=== PATIENT | male | born 1955 | race Caucasian/White ===

== ENCOUNTER 2024-08-17 10:34 | Emergency (ER) | payer MEDICARE ==
[~2024-08-17] VITALS: Ht 165.1 cm; Wt 75.0 kg
[2024-08-17 10:44] VITALS: BP 185/84; PULSE 100; TEMP 97.9; O2SAT 97
[2024-08-17] MEDS ORDERED: ONDA-243 PO (13:03)
[2024-08-17] MEDS ORDERED: SODI354S PO (13:03)
[2024-08-17] MEDS ORDERED: DICY20TA17 PO (13:03)
[2024-08-17] MEDS: dicyclomine 10 MG capsule PO ONE (13:29)
[2024-08-17] MEDS: ondansetron 4mg rapidly disintigrating tab PO ONE (13:29)
[2024-08-17 13:43] VITALS: RESP 18
== END 2024-08-17 13:44 | disposition home or self-care (01) ==
LOC: ER 10:34
DX: K59.00 Constipation, unspecified (principal)
CPT/HCPCS: 74018; 99283; Z7610